=== PATIENT | female | born 1990 | race Caucasian/White ===

== ENCOUNTER 2019-07-20 05:59 | Emergency (ER) | payer OTHER, MEDICAID ==
[~2019-07-20] VITALS: Ht 165.1 cm; Wt 81.6 kg
--- NOTE | 2019-07-20 06:05 | NUR ---
PT AMBULATED TO BED #2
[2019-07-20 06:10] VITALS: BP 119/75
--- NOTE | 2019-07-20 06:10 | NUR ---
29 Y/O FEMALE PT C/O RIGHT HAND/ARM PAIN X 3 HRS S/P FALL FROM HER STAIRS. NO HEAD INJURY NOTED. PERRLA +3. A/O X4 AND FOLLOWS COMMANDS. <3 SECONDS CAP REFILL. PALPABLE RADIAL PULSES +2. PAIN IS 7/10 THAT RADIATES FROM RIGHT HAND TO RIGHT ARM AND RIGHT CHEST. ERMD MADE AWARE OF STATUS. SIDE RAILSX1. FRIEND AT BEDSIDE. VSS. NKA NO PREVIOUS MEDICAL HX
[2019-07-20] MEDS ORDERED: IBUPROFEN 800 MG TAB PO ONE (06:25)
--- NOTE | 2019-07-20 06:54 | NUR ---
EMT AT BEDSIDE.
--- NOTE | 2019-07-20 06:55 | NUR ---
LONG ARM SPLINT APPLIED TO PT R ARM, WRAPPED WITH DAVE WRAP. +CSM
--- NOTE | 2019-07-20 06:58 | NUR ---
SLING SIZE LARGE APPLIED TO PT R ARM, FITTED TO PT SIZE
[2019-07-20 07:11] VITALS: BP 119/75
--- NOTE | 2019-07-20 07:11 | NUR ---
Patient discharged with v/s stable. Written and verbal after care instructions given and explained. Patient verbalized understanding. Ambulatory with steady gait. All questions addressed prior to discharge. Advised to follow up with PMD. MEDICATION PRESCRIPTIONS MOTRIN WAS GIVEN, CD OF XRAY WAS GIVEN.
== END 2019-07-20 07:11 | disposition home or self-care (01) ==
LOC: MED 05:59
DX: S52.201A Unspecified fracture of shaft of right ulna, initial encounter for closed fracture (principal); W10.8XXA Fall (on) (from) other stairs and steps, initial encounter; Y93.89 Activity, other specified; Y92.89 Other specified places as the place of occurrence of the external cause; Y99.8 Other external cause status
CPT/HCPCS: 29105; 73080; 73090; 99283; Q0092